=== PATIENT | male | born 1980 | race Caucasian/White ===

== ENCOUNTER 2019-04-06 20:30 | Emergency (ER) | payer OTHER ==
[~2019-04-06] VITALS: Ht 200.7 cm; Wt 78.0 kg
[2019-04-06 21:03] VITALS: BP 130/92; Ht 200.7 cm; Wt 78.0 kg
== END 2019-04-06 22:07 | disposition home or self-care (01) ==
LOC: ED 20:30
DX: S60.221A Contusion of right hand, initial encounter (principal); W01.0XXA Fall on same level from slipping, tripping and stumbling without subsequent striking against object, initial encounter; Y93.89 Activity, other specified; Y92.89 Other specified places as the place of occurrence of the external cause; Y99.8 Other external cause status